=== PATIENT | female | born 2000 | race Caucasian/White ===

== ENCOUNTER 2019-10-02 04:42 | Inpatient (IN) | payer OTHER ==
[2019-10-02 05:29] LABS: APPEARANCE,URINE CLOUDY; BILIRUBIN,URINE NEGATIVE (NEGATIVE); COLOR,URINE YELLOW; GLUCOSE, URINE NEGATIVE (NEGATIVE); KETONES,URINE NEGATIVE (NEGATIVE); LEUKOCYTE ESTERASE,URINE MODERATE (NEGATIVE); NITRITE,URINE NEGATIVE (NEGATIVE); PROTEIN,URINE 30 mg/dL (NEGATIVE); URINE SPECIFIC GRAVITY 1.004; UROBILINOGEN,URINE NEGATIVE mg/dL (<2.0)
[2019-10-02 05:44] LABS: URINE AMPHETAMINES SCREEN NEGATIVE; URINE BARBITURATES SCREEN NEGATIVE; URINE BENZODIAZEPINES SCREEN NEGATIVE; URINE COCAINE SCREEN NEGATIVE; URINE MARIJUANA (THC) SCREEN NEGATIVE; URINE METHADONE SCREEN NEGATIVE; URINE PHENCYCLIDINE SCREEN NEGATIVE
[2019-10-02] MEDS ORDERED: RINGERS SOLUTION,LACTATED 1,000 ML IV PRN (05:48)
[2019-10-02] MEDS ORDERED: BUPIVACAINE HCL 0.25 % INJ/PF (2.5 MG/1 ML) 30 ML VIAL ONE (06:16)
[2019-10-02] MEDS ORDERED: FENTANYL/BUPIVACAINE/NS/PF 300 MCG/150 ML RTUINJ EPI ONE (06:16)
[2019-10-02] MEDS ORDERED: EPHEDRINE SULFATE INJ 50 MG/1 ML AMPULE ONE (06:16)
[2019-10-02 06:18] LABS: ABSOLUTE EOSINOPHILS # (AUTO) 0.2 10^3/uL (0.0-0.6); ABSOLUTE LYMPHOCYTES (AUTO) 2.2 10^3/uL (0.5-4.7); ABSOLUTE MONOCYTES (AUTO) 0.9 10^3/uL (0.1-1.4); ABSOLUTE NEUT (AUTO) 6.7 10^3/uL (1.7-8.2); BASOPHILS % (AUTO) 0.2 % (0-2); EOSINOPHILS % (AUTO) 1.9 % (0-6); HEMATOCRIT 38.1 % (36.0-47.0); HEMOGLOBIN 13.2 g/dL (12.0-15.5); LYMPHOCYTES % (AUTO) 22.1 % (13-45); MEAN CORPUSCULAR HEMOGLOBIN 29.8 pg (27.0-33.4); MEAN CORPUSCULAR HGB CONC 34.6 g/dL (32.0-36.0); MEAN CORPUSCULAR VOLUME 86 fl (80-97); MONOCYTES % (AUTO) 8.7 % (3-13); PLATELET COUNT 162 10^3/uL (150-450); RED BLOOD COUNT 4.42 10^6/uL (3.72-5.28); RED CELL DISTRIBUTION WIDTH 14.4 % (11.5-14.0); SEGMENTED NEUTROPHILS % (AUTO) 67.1 % (42-78); TOTAL CELLS COUNTED % (AUTO) 100 %
--- NOTE | 2019-10-02 07:30 | Admission Physical ---
Datetime Report Generated by CPN: 10/02/2019 07:29 CURRENT ADMISSION Chief Complaint: Uterine Contractions; Suspected Ruptured Membranes Admit Impression : Term, Intrauterine ; Active Labor; Ruptured Membranes Admit Plan: Admit to Unit; Initiate Labor Protocol ALLERGIES Medication Allergies: No Medication Allergies: No Known Allergies (10/02/2019) Latex: No Latex Allergies Food Allergies: non Environmental Allergies: no OBSTETRICAL HISTORY EDC: 10/10/2019 00:00 : 1 Para: 0 Term: 0 : 0 SAB: 0 IAB: 0 Livin Gestational Diabetes: No Rh Sensitization: No Incompetent Cervix: No SAMPSON: No Infertility: No ART Treatment: No Uterine Anomaly: No IUGR: No Hx Previous C/S: No Macrosomia: No Hx Loss/Stillborn: No PIH: No Hx : No Placenta Previa/Abruption: No Depression/PP Depression: No PTL/PROM: No Current Procedures: Ultrasound MEDICAL HISTORY Diabetes: No Blood Transfusion: No Pulmonary Disease (Asthma, TB): No Breast Disease: No Hypertension: No Referral Management Liaison Surgery: No Heart Disease: No Hosp/Surgery: No Autoimmune Disorder: No Anesthetic Complications: No Kidney Disease: No Abnormal Pap Smear: No Neuro/Epilepsy: No Psychiatric Disorders: No Other Medical Diseases: No Hepatitis/Liver Disease: No Significant Family History: No Varicosities/Phlebitis: No Trauma/Violence : No Thyroid Dysfunction: No Medical History Comments: scoliosis INFECTIOUS HISTORY Gonorrhea: No Genital Herpes: No Chlamydia: No Tuberculosis: No Syphilis: No Hepatitis: No HIV/AIDS Exposure: No Rash or Viral Illness: No HPV: No PHYSICAL EXAM General: Normal HEENT: Normal Neurologic: Normal Thyroid: Normal Heart: Normal Lungs: Normal Breast: Normal Back: Normal Abdomen: Normal Genitourinary Exam: Normal Extremities: Normal DTRs: Normal Pelvic Type: Adequate Vital Signs: Reviewed; Within Normal Limits VAGINAL EXAM Dilatation: 1 Effacement: 80 Station: -2 Contraction Comments: regular MEMBRANES Membranes: Ruptured Amniotic Fluid Color: Clear FETUS A EGA: 38.6 Monitoring: External US FHR- Baseline: 130 Variability: Moderate 6-25bpm Accelerations: 15X15 Decelerations: None FHR Category: Category I Presentation: Vertex Admit Comment: 19 yo G1 at 38.6 wks EGA in active labor s/p SROM clear -Admit to LDR -CEFM and toco -GBS negative -desires epidural, will contact anesthesia -Anticipate INFORMED CONSENT Informed Consent Obtained: Vaginal Delivery; Risks, Benefits and Alternatives Discussed Signature: with User ID: [email or web address] : with User ID: [email or web address]
[2019-10-02] MEDS ORDERED: OXYTOCIN 10 UNIT/ML VIAL ONE (08:32)
[2019-10-02] MEDS ORDERED: OXYTOCIN/0.9 % SODIUM CHLORIDE 30 UNIT/500 ML RTUINJ ONE (08:32)
[2019-10-02] MEDS ORDERED: LIDOCAINE 1% INJ-PF (10 MG/ML) 30 ML SDV ONE (08:32)
[2019-10-02] MEDS ORDERED: MISOPROSTOL 0.2 MG TABLET ONE (08:32)
[2019-10-02] MEDS ORDERED: PROMETHAZINE HCL 25 MG SUPP.RECT PR PRN (10:48)
[2019-10-02] MEDS ORDERED: NA PHOS,M-B/NA PHOS,DI-BA (ADULT) 133 ML ENEMA PR PRN (10:48)
[2019-10-02] MEDS ORDERED: MEASLES,MUMPS&RUBELLA VACC/PF 0.5 ML VIAL SUBCUT PRN (10:48)
[2019-10-02] MEDS ORDERED: DIPH/PERTUSS(ACELL)/TETANUS VAC/PF 0.5 ML SYR (>=10YO) IM PRN (10:48)
[2019-10-02] MEDS ORDERED: PROMETHAZINE HCL INJ 25 MG/1 ML VIAL IV PRN (10:48)
[2019-10-02] MEDS ORDERED: BENZOCAINE/MENTHOL AEROSOL SPRAY 56 ML TOP PRN (10:48)
[2019-10-02] MEDS ORDERED: DIBUCAINE 1% OINTMENT 28 GM TP PRN (10:48)
[2019-10-02] MEDS ORDERED: ACETAMINOPHEN 325 MG TABLET PO PRN (10:48)
[2019-10-02] MEDS ORDERED: PSEUDOEPHEDRINE HCL 30 MG TABLET PO PRN (10:48)
[2019-10-02] MEDS ORDERED: MAGNESIUM HYDROXIDE SUSP 30 ML UDCUP PO PRN (10:48)
[2019-10-02] MEDS ORDERED: OXYTOCIN/0.9 % SODIUM CHLORIDE 30 UNIT/500 ML RTUINJ IV PRN (10:48)
[2019-10-02] MEDS ORDERED: DIPHENHYDRAMINE HCL 25 MG CAPSULE PO PRN (10:48)
[2019-10-02] MEDS ORDERED: PROMETHAZINE HCL 25 MG TABLET PO PRN (10:48)
[2019-10-02] MEDS ORDERED: GLYCERIN/WITCH HAZEL LEAF 1 EACH MED..WIPE TP PRN (10:48)
[2019-10-02] MEDS: IBUPROFEN 800 MG TABLET PO SCH ×2 (17:42→21:36)
[2019-10-02] MEDS: DOCUSATE SODIUM 100 MG CAPSULE PO SCH (17:43)
[2019-10-02] MEDS: FERROUS SULFATE 325 MG TABLET PO SCH (17:44)
[2019-10-02] MEDS: FAMOTIDINE 20 MG TABLET PO SCH (21:36)
[2019-10-03] MEDS: IBUPROFEN 800 MG TABLET PO SCH ×3 (06:03→21:05)
[2019-10-03 06:55] LABS: HEMATOCRIT 36.7 % (36.0-47.0); HEMOGLOBIN 12.7 g/dL (12.0-15.5); MEAN CORPUSCULAR HGB CONC 34.6 g/dL (32.0-36.0); MEAN CORPUSCULAR VOLUME 87 fl (80-97); PLATELET COUNT 150 10^3/uL (150-450); RED BLOOD COUNT 4.23 10^6/uL (3.72-5.28); RED CELL DISTRIBUTION WIDTH 14.4 % (11.5-14.0); WHITE BLOOD COUNT 10.9 10^3/uL (4.0-10.5)
[2019-10-03] MEDS: PRENATAL VITAMIN W DHA CAPSULE PO SCH (09:11)
[2019-10-03] MEDS: FAMOTIDINE 20 MG TABLET PO SCH ×2 (09:11→21:05)
[2019-10-03] MEDS: SENNOSIDES/DOCUSATE 8.6-50 MG 1 EACH TABLET PO SCH (09:11)
[2019-10-03] MEDS: DOCUSATE SODIUM 100 MG CAPSULE PO SCH ×2 (09:11→18:17)
[2019-10-03] MEDS: FERROUS SULFATE 325 MG TABLET PO SCH ×2 (09:11→18:17)
--- NOTE | 2019-10-03 13:44 | PDOC PROGRESS REPORT ---
Subjective-OB Progress Note for:: 10/03/19 Subjective: Pt doing well, no concerns. She is bleeding light, reports reg diet and voiding without difficulty. Physical Exam (OB) Vital Signs: Temp Pulse Resp BP Pulse Ox 97.5 F 57 L 16 121/66 100 10/03/19 07:50 10/03/19 07:50 10/03/19 07:50 10/03/19 07:50 10/03/19 07:50 Intake & Output 10/02/19 10/03/19 10/04/19 06:59 06:59 06:59 Intake Total 900 Balance 900 Weight 65.5 kg - Lochia Lochia Amount: Small 10-25 ml Lochia Color: Rubra/Red - Abdomen Description: Soft Hernia Present: No Fundal Description: Firm, Midline Fundal Height: u/u - u/2 Objective-Diagnostic Laboratory: 10/03/19 06:23 10/03/19 06:23 WBC 10.9 H RBC 4.23 Hgb 12.7 Hct 36.7 MCV 87 MCH 30.0 MCHC 34.6 RDW 14.4 H Plt Count 150 Assessment and Plan(PN) - Assessment and Plan (1) Delivery normal Is this a current diagnosis for this admission?: Yes (2) care insufficient Qualifiers: Trimester: unspecified trimester Qualified Code(s): O09.30 - Supervision of with insufficient care, unspecified trimester Is this a current diagnosis for this admission?: Yes - Time Spent with Patient Time with patient: Less than 15 minutes Medications reviewed and adjusted accordingly: Yes - Disposition Anticipated Discharge: Home Within: within 24 hours
--- NOTE | 2019-10-03 13:53 | PDOC PROGRESS REPORT ---
Subjective-OB Progress Note for:: 10/03/19 Subjective: Pt doing well, no concerns. She reports light bleeding, reg diet and voiding without difficulty. Physical Exam (OB) Vital Signs: Temp Pulse Resp BP Pulse Ox 97.5 F 57 L 16 121/66 100 10/03/19 07:50 10/03/19 07:50 10/03/19 07:50 10/03/19 07:50 10/03/19 07:50 Intake & Output 10/02/19 10/03/19 10/04/19 06:59 06:59 06:59 Intake Total 900 Balance 900 Weight 65.5 kg - Lochia Lochia Amount: Small 10-25 ml Lochia Color: Rubra/Red - Abdomen Description: Soft Hernia Present: No Fundal Description: Firm, Midline Fundal Height: u/u - u/2 Objective-Diagnostic Laboratory: 10/03/19 06:23 10/03/19 06:23 WBC 10.9 H RBC 4.23 Hgb 12.7 Hct 36.7 MCV 87 MCH 30.0 MCHC 34.6 RDW 14.4 H Plt Count 150 Assessment and Plan(PN) - Assessment and Plan (1) Delivery normal Is this a current diagnosis for this admission?: Yes (2) care insufficient Qualifiers: Trimester: unspecified trimester Qualified Code(s): O09.30 - Supervision of with insufficient care, unspecified trimester Is this a current diagnosis for this admission?: Yes - Time Spent with Patient Time with patient: Less than 15 minutes Medications reviewed and adjusted accordingly: Yes - Disposition Anticipated Discharge: Home Within: within 24 hours
[2019-10-04] MEDS: IBUPROFEN 800 MG TABLET PO SCH ×2 (05:36→15:09)
--- NOTE | 2019-10-04 07:51 | PDOC DISCHARGE SUMMARY ---
Impression - Admit/DC Date/PCP Admission Date/Primary Care Provider: 10/02/19 05:48 JOSE G CRUZ MD Discharge Date: 10/04/19 - Discharge Diagnosis (1) Delivery normal Is this a current diagnosis for this admission?: Yes (2) care insufficient Is this a current diagnosis for this admission?: Yes - Additional Information Resuscitation Status: Full Code Discharge Diet: Regular Discharge Activity: Balance Activity w/Rest, Pelvic Rest Referrals: JOSE G CRUZ MD [Primary Care Provider] - Prescriptions: Ibuprofen [Motrin 800 mg Tablet] 800 mg PO Q8HP PRN #60 tablet PRN Reason: Home Medications: Pnv No.95/Ferrous Fum/Folic AC [ Vitamins Tablet] 1 each PO DAILY 10/02/19 Ibuprofen [Motrin 800 mg Tablet] 800 mg PO Q8HP PRN #60 tablet 10/04/19 HPI Gestational Age: 38.6 Reason(s) for Admission: Onset of Labor Procedures: NST Intrapartum Procedure(s): Spontaneous Vaginal Delivery Complication(s): Laceration-Labial Laceration-Degree: 1st Results Laboratory Results: WBC 10.9 10^3/uL (4.0-10.5) H 10/03/19 06:23 RBC 4.23 10^6/uL (3.72-5.28) 10/03/19 06:23 Hgb 12.7 g/dL (12.0-15.5) 10/03/19 06:23 Hct 36.7 % (36.0-47.0) 10/03/19 06:23 MCV 87 fl (80-97) 10/03/19 06:23 MCH 30.0 pg (27.0-33.4) 10/03/19 06:23 MCHC 34.6 g/dL (32.0-36.0) 10/03/19 06:23 RDW 14.4 % (11.5-14.0) H 10/03/19 06:23 Plt Count 150 10^3/uL (150-450) 10/03/19 06:23 Lymph % (Auto) 22.1 % (13-45) 10/02/19 06:06 [place] % (Auto) 8.7 % (3-13) 10/02/19 06:06 Eos % (Auto) 1.9 % (0-6) 10/02/19 06:06 Baso % (Auto) 0.2 % (0-2) 10/02/19 06:06 Absolute Neuts (auto) 6.7 10^3/uL (1.7-8.2) 10/02/19 06:06 Absolute Lymphs (auto) 2.2 10^3/uL (0.5-4.7) 10/02/19 06:06 Absolute Monos (auto) 0.9 10^3/uL (0.1-1.4) 10/02/19 06:06 Absolute Eos (auto) 0.2 10^3/uL (0.0-0.6) 10/02/19 06:06 Absolute Basos (auto) 0.0 10^3/uL (0.0-0.2) 10/02/19 06:06 Seg Neutrophils % 67.1 % (42-78) 10/02/19 06:06 Urine Color YELLOW 10/02/19 05:00 Urine Appearance CLOUDY 10/02/19 05:00 Urine pH 7.0 (5.0-9.0) 10/02/19 05:00 Ur Specific [place] 1.004 10/02/19 05:00 Urine Protein 30 mg/dL (NEGATIVE) H 10/02/19 05:00 Urine Glucose (UA) NEGATIVE mg/dL (NEGATIVE) 10/02/19 05:00 Urine Ketones NEGATIVE mg/dL (NEGATIVE) 10/02/19 05:00 Urine Blood MODERATE (NEGATIVE) H 10/02/19 05:00 Urine Nitrite NEGATIVE (NEGATIVE) 10/02/19 05:00 Urine Bilirubin NEGATIVE (NEGATIVE) 10/02/19 05:00 Urine Urobilinogen NEGATIVE mg/dL (<2.0) 10/02/19 05:00 Ur Leukocyte Esterase MODERATE (NEGATIVE) H 10/02/19 05:00 Urine Ascorbic Acid NEGATIVE (NEGATIVE) 10/02/19 05:00 Membranes Rupture POSITIVE (NEGATIVE) H 10/02/19 05:00 Urine Opiates Screen NEGATIVE 10/02/19 05:00 Urine Methadone Screen NEGATIVE 10/02/19 05:00 Ur Barbiturates Screen NEGATIVE 10/02/19 05:00 Ur Phencyclidine Scrn NEGATIVE 10/02/19 05:00 Ur Amphetamines Screen NEGATIVE 10/02/19 05:00 U Benzodiazepines Scrn NEGATIVE 10/02/19 05:00 Urine Cocaine Screen NEGATIVE 10/02/19 05:00 U Marijuana (THC) Screen NEGATIVE 10/02/19 05:00 RPR NONREACTIVE (NONREACTIVE) 10/02/19 06:06 Blood Type O POSITIVE 10/02/19 06:06 Antibody Screen NEGATIVE 10/02/19 06:06 Plan Plan of Treatment: f/u at [facility] for PPCK 4 wks Time Spent: Less than 30 Minutes
[2019-10-04] MEDS: DOCUSATE SODIUM 100 MG CAPSULE PO SCH (09:11)
[2019-10-04] MEDS: PRENATAL VITAMIN W DHA CAPSULE PO SCH (09:11)
[2019-10-04] MEDS: FERROUS SULFATE 325 MG TABLET PO SCH (09:11)
[2019-10-04] MEDS: SENNOSIDES/DOCUSATE 8.6-50 MG 1 EACH TABLET PO SCH (09:11)
[2019-10-04] MEDS: FAMOTIDINE 20 MG TABLET PO SCH (09:11)
[2019-10-04 14:24] VITALS: BP 121/66
--- NOTE | 2019-10-07 13:39 | Delivery Summary ---
Del Sum A-C Datetime Report Generated by CPN: 10/07/2019 13:38 DELIVERY PERSONNEL DELIVERY PERSONNEL: [id number] Delivery Doctor:: Mae Carmen CNM Labor and Delivery Nurse:: Reema Suarez RNlight adjuster Nurse:: ZAID Dumont Nursery Nurse:: Kriss Pelayo RN Nursery Nurse:: Aniyah Quinones RN Medical Claims Analyst/GAS GENERATOR OPERATOR: Judi Georges CNA II MATERNAL INFORMATION Delivery Anesthesia: Epidural Medications After Delivery: Pitocin Bolus-Please Comment; Pitocin 30 Units in 500ml NS/D5W Estimated Blood Loss (ml): 50 Delivery QBL Comment: 50 Maternal Complications: Precipitous Labor (<3hrs) Provider Comments: pt quickly progressed to c/c/+1 with urge to push, began pushing and quickly delivered a viable baby girl in IVANA presentation. Baby with vigorous respiratory effort and cry spontaneously at . Baby placed on maternal abdomen, cord allowed to stop pulsating then clamped x2 and cut by FOB (cord blood collected,3vc noted). Placenta delivered spontaneously intact with central insertion and multiple calcification sites. Fundus firm @ u-2, bleeding stable. Vaginal and perineal inspection revealed laceration as stated but hemostatic and not repaired. Mother and baby remain skin to skin and bonding at this time. LABOR SUMMARY EDC: 10/10/2019 00:00 Attempted: No Labor Anesthesia: Epidural LABOR INFORMATION Reason for Induction: Not Applicable Onset of Labor: 10/02/2019 07:30 Complete Dilatation: 10/02/2019 09:29 Oxytocin: N/A Group B Beta Strep: negative Antibiotics # of Doses: 0 Antibiotics Time of Last Dose: n/a Name of Antibiotic Given: n/a Steroids Given: None Reason Steroids Not Administered: Not Applicable MEMBRANES Membranes Rupture Method: Spontaneous Rupture of Membranes: 10/02/2019 02:30 Length of Rupture (hr): 8.03 Amniotic Fluid Color: Clear Amniotic Fluid Amount: Moderate Amniotic Fluid Odor: Normal (Annotations: Data stored by [facility] on behalf of user) STAGES OF LABOR Stage 1 hr: 1 Stage 1 min: 59 Stage 2 hr: 1 Stage 2 min: 3 Stage 3 hr: 0 Stage 3 min: 5 Total Time in Labor hr: 3 Total Time in Labor min: 7 VAGINAL DELIVERY Episiotomy: None Laceration #1: Vaginal Laceration Extension #1: First Degree Other Laceration: right labial abrasion Laceration Repair: Not Applicable Laceration Repair Note: hemostatic no repair Sponge Count Correct: N/A Sharps Count Correct: N/A CSECTION DELIVERY Primary Indication: N/A Secondary Indication: N/A CSection Incidence: N/A Labor: N/A Elective: N/A CSection Incision: N/A BABY A INFORMATION Delivery Date/Time: 10/02/2019 10:32 Method of Delivery: Vaginal Method of Delivery: Vaginal Born in Route : No : N/A Forceps: N/A Vacuum Extraction: N/A Shoulder Dystocia : No PRESENTATION/POSITION BABY A Presentation: Cephalic Cephalic Presentation: Vertex Vertex Position: Right Occipital Anterior Breech Presentation: N/A PLACENTA INFORMATION BABY A Placenta Delivery Time : 10/02/2019 10:37 Placenta Method of Delivery: Spontaneous Placenta Method of Delivery: Spontaneous Placenta Status: Delivered SCORES BABY A Heart Rate 1 min: >100 bpm Resp Effort 1 min: Good Cry Reflex Irritability 1 min: Cough or Sneeze or Pulls Away Muscle Tone 1 min: Active Motion Color 1 min: Body [place], Extremities Blue Resuscitation Effort 1 min: Tactile Stimulation SCORE 1 MIN: 9 Heart Rate 5 min: >100 bpm Resp Effort 5 min: Good Cry Reflex Irritability 5 min: Cough or Sneeze or Pulls Away Muscle Tone 5 min: Active Motion Color 5 min: Completely [place] Resuscitation Effort 5 min: N/A SCORE 5 MIN: 10 Resuscitation Effort 10 min: N/A INFORMATION BABY A Gestational Age at Delivery: 38.6 Gestational Status: Early Term- 37- 38.6 Weeks Outcome : Liveborn Infant Condition : Stable Infant Sex: Female Infant Sex: Female IDENTIFICATION BABY A Verification Date/Time: 10/02/2019 10:45 ID Band Number: [id number] Mother's Name Verified: Yes Infant RN Verifying Infant: R Erick RN Additional Verifying Personnel: S Camp RN WEIGHT/LENGTH BABY A Birthweight (gm): 3150 Weight (lb): 6 Infant Weight (oz): 15 Infant Length (in): 19.75 Length (cm): 50.17 CORD INFORMATION BABY A No. Cord Vessels: 3 Nuchal Cord : N/A Cord Blood Taken: Yes-For Eval (Mom's Blood Type - or O+) Suction: None ASSESSMENT BABY A Skin to Skin: Yes BABY B INFORMATION : N/A SIGNATURES Assignment: Charles Ray MD Signature: with User ID: Paula : with User ID: Paula
== END 2019-10-04 17:57 | disposition home or self-care (01) | DRG 807 ==
LOC: LC 04:42 → LR 05:48 → 2S 14:43
PROVIDERS: ADMIT Obstetrics & Gynecology; ATTEND Obstetrics & Gynecology
PROC: 10E0XZZ Delivery of Products of Conception, External Approach (ICD-10-PCS; principal; 2019-10-02)
PROC: 0UQMXZZ Repair Vulva, External Approach (ICD-10-PCS; 2019-10-02)
DX: O62.3 Precipitate labor (principal); Z37.0 Single live birth; O99.89 Other specified diseases and conditions complicating pregnancy, childbirth and the puerperium; M41.9 Scoliosis, unspecified; O70.0 First degree perineal laceration during delivery; Z3A.38 38 weeks gestation of pregnancy
CPT/HCPCS: 1967; 36415; 80307; 81005; 84112; 85025; 85027; 86592; 86850; 86900; 86901; 94760; J2590; J3010; J3490